=== PATIENT | female | born 1960 | race Caucasian/White ===

== ENCOUNTER 2022-04-14 02:48 | Inpatient (IN) | payer OTHER ==
[~2022-04-14] VITALS: Ht 157.5 cm; Wt 52.2 kg
[2022-04-14] MEDS ORDERED: IV NORMAL SALINE 500 ML BAG IV ONE ×2 (03:00→03:15)
[2022-04-14] MEDS ORDERED: SODIUM BICARBONATE 8.4% 50 MEQ/50 ML DISP.SYRIN IV ONE ×2 (03:15→03:30)
--- NOTE | 2022-04-14 03:43 | NUR ---
BIB ambulance from home with c/o chest pain, bedside EKG done for MD review. Informed of plan of care at this time. #24g established in right foot, unable to draw blood at this time. patient is a/ox4 c/o left arm and chest pain s/p leaving her drink and returning to it. no s/s of respiratory distress, abd soft and slightly distended, states tender to palpation, no s/s of any edema noted. side rails up will continue to monitor.
[2022-04-14] MEDS ORDERED: LORAZEPAM 2 MG/1 ML VIAL ONE (03:52)
[2022-04-14] MEDS ORDERED: LORAZEPAM 2 MG/1 ML VIAL IM ONE (04:00)
--- NOTE | 2022-04-14 04:14 | NUR ---
patient has been medicated as per order with ativan 1mg, IVF infusing well, awaiting MD for IV placement via ultrasound.
[2022-04-14] MEDS ORDERED: levETIRAcetam 250 MG TABLET PO ONE (05:00)
--- NOTE | 2022-04-14 05:11 | NUR ---
MD was at bedside for IV start via ultrasound, unable to place at this time.
--- NOTE | 2022-04-14 05:17 | NUR ---
patient continues to rest in bed, skin color noted to be pale at this time, still unable to draw labs.Respiratory at bedside. side rails remain up will continue to monitor.
[2022-04-14 05:22] LABS: CREATININE 0.7 mg/dL (0.6-1.3); POTASSIUM 4.7 mmol/L (3.5-5.1)
[2022-04-14 05:25] LABS: HEMATOCRIT 36.1 % (31.2-41.9); MEAN CORPUSCULAR VOLUME 99.7 fL (75.5-95.3); PLATELET COUNT (AUTO) 406 K/uL (179-408)
[2022-04-14] MEDS ORDERED: levETIRAcetam 250 MG TABLET ONE (05:26)
[2022-04-14 05:34] LABS: BILIRUBIN,TOTAL 0.4 mg/dL (0.2-1.0); MAGNESIUM 1.9 mg/dL (1.8-2.4); PHOSPHOROUS 1.7 mg/dL (2.5-4.9); TOTAL PROTEIN, SERUM 7.3 g/dL (6.4-8.2)
--- NOTE | 2022-04-14 06:01 | NUR ---
patient ambulated to bathroom and back to bed, placed back on monitor and repeat EKG done for md review.
[2022-04-14 06:09] LABS: ETHANOL 123 MG/DL (0-0)
[2022-04-14 06:12] LABS: ACETAMINOPHEN < 10.0 ug/mL (10-30)
[2022-04-14] MEDS ORDERED: MECL-115 PO (06:12)
[2022-04-14] MEDS ORDERED: LISI20TA30 PO (06:12)
[2022-04-14] MEDS ORDERED: LEVE500T9 PO (06:12)
[2022-04-14] MEDS ORDERED: ATOR20TA PO (06:12)
[2022-04-14] MEDS ORDERED: POTA10CA43 PO (06:12)
[2022-04-14] MEDS ORDERED: FURO-152 PO (06:12)
--- NOTE | 2022-04-14 06:12 | NUR ---
Patient to CT via wheelchair.
--- NOTE | 2022-04-14 06:19 | NUR ---
sodium bicarb was discontinued by [facility]NASTAS[facility]. returned to stock.
[2022-04-14] MEDS ORDERED: LORAZEPAM 1 MG TABLET ONE (06:28)
--- NOTE | 2022-04-14 06:29 | NUR ---
Verbal order to hold off on morphine and give 1mg of ativan po at this time. Patient has been medicated as per order.
[2022-04-14] MEDS ORDERED: MORPHINE SULFATE 2 MG/1 ML DISP.SYRIN IV ONE (06:30)
--- NOTE | 2022-04-14 06:34 | NUR ---
returned from CT awaiting results.
[2022-04-14] MEDS ORDERED: LORAZEPAM 0.5 MG TABLET PO ONE (06:45)
--- NOTE | 2022-04-14 06:47 | NUR ---
O2 2 LITERS APPLIED AT THIS TIME SAT WAS 86# MD AWARE, PATIENT AWARE AWAITING URINE.
--- NOTE | 2022-04-14 06:59 | NUR ---
PATIENT PLACED ON BEDPAN PER HER REQUEST.
[2022-04-14] MEDS ORDERED: ASPIRIN 325 MG TABLET PO ONE (07:00)
--- NOTE | 2022-04-14 07:10 | NUR ---
REMOVED FROM BEDPAN, UNABLE TO VOID AT THIS TIME.
[2022-04-14 08:42] LABS: *BILIRUBIN,URIN NEGATIVE (NEGATIVE); *CLARITY,URINE CLEAR (CLEAR); *COLOR,URINE YELLOW (YELLOW); *KETONES,URINE NEGATIVE (NEGATIVE); *UROBILINOGEN,URINE 0.2 E.U./dl (NORMAL); LEUKOCYTE ESTERASE ,URINE 1+ (NEGATIVE); NITRITE, URINE POSITIVE (NEGATIVE); PH,URINE 6.5 (5.0-8.0); UGLUCOSE NEGATIVE (NEGATIVE)
[2022-04-14 08:49] LABS: *AMPHETAMINE, URINE POSITIVE (NEGATIVE); *CANNABINOID, URINE NEGATIVE (NEGATIVE); *COCCAINE, URINE NEGATIVE (NEGATIVE); *OPIATE, URINE NEGATIVE (NEGATIVE); *PHENCYCLIDINE SCREEN,URINE NEGATIVE (NEGATIVE)
[2022-04-14 08:56] LABS: *BLOOD, URINE TRACE (NEGATIVE)
--- NOTE | 2022-04-14 09:30 | NUR ---
Gave report to ASHLEY Manzanares.
--- NOTE | 2022-04-14 10:25 | NUR ---
Patient transferred to telemetry unit room 329B accompanied by RN.
[2022-04-14 11:00] VITALS: BP 146/70
[2022-04-14] MEDS ORDERED: MECLIZINE HCL 25 MG TABLET PO PRN (11:00)
[2022-04-14] MEDS ORDERED: ONDANSETRON 4 MG/2 ML VIAL IV PRN (11:00)
[2022-04-14] MEDS ORDERED: LISINOPRIL 20 MG TABLET PO SCH (11:00)
[2022-04-14] MEDS ORDERED: levETIRAcetam 500 MG TABLET PO SCH (11:00)
--- NOTE | 2022-04-14 11:00 | NUR ---
REPORT RECEIVED FROM ALEXIS RAMIREZ. PT AOX3-4, AMBULATORY. SKIN INTACT. ON ROOM AIR SATURATING 97-98%. S/P FALL AT HOME. PT IS POSITIVE FOR AMPHETAMINE AND ETOH. PT IS SINUS R WITH LBBB. PT WILL GO TO RM 329B. DR RAMIREZ WILL FOLLOW UP CARE.
[2022-04-14 12:15] LABS: BACTERIA,URINE MA /HPF (NONE SEEN); SQUAMOUS EPITHELIAL CELL,UR FEW /HPF (NONE SEEN)
[2022-04-14] MEDS: NITROFURANTOIN/NITROFURAN MAC 100 MG CAPSULE PO SCH ×2 (12:24→20:21)
[2022-04-14] MEDS: LORAZEPAM 2 MG/1 ML VIAL IV PRN ×2 (12:26→20:27)
[2022-04-14] MEDS ORDERED: HYDR25TA4 PO (13:10)
[2022-04-14] MEDS ORDERED: CYCL5TAB PO (13:10)
[2022-04-14] MEDS ORDERED: ESCI10TA PO (13:11)
[2022-04-14] MEDS ORDERED: GABAPE PO (13:42)
[2022-04-14] MEDS ORDERED: LORA-258 PO (13:42)
[2022-04-14] MEDS ORDERED: LEVE750T10 PO (13:42)
[2022-04-14] MEDS: ACETAMINOPHEN 325 MG TABLET PO PRN (16:15)
[2022-04-14] MEDS ORDERED: SODIUM PHOSPHATE MM 15 MMOL in IV NORMAL SALINE 250 ML IV ONE (17:00)
[2022-04-14] MEDS: levETIRAcetam 500 MG TABLET PO SCH (17:25)
[2022-04-14 19:48] VITALS: BP 132/64
[2022-04-14] MEDS: ATORVASTATIN 40 MG TABLET PO SCH (20:27)
[2022-04-14] MEDS ORDERED: ATORVASTATIN 20 MG TABLET PO SCH (21:00)
[2022-04-14] MEDS ORDERED: CEFTRIAXONE /D5W 50ML IVPB **ER PYXIS IV ONE (21:53)
[2022-04-14] MEDS: CEFTRIAXONE 1 G in IV DEXTROSE 5% 50 ML IV SCH (22:07)
[2022-04-15 00:01] VITALS: BP 130/68
[2022-04-15 04:34] VITALS: BP 167/85
[2022-04-15] MEDS: LORAZEPAM 2 MG/1 ML VIAL IV PRN (05:50)
--- NOTE | 2022-04-15 05:53 | NUR ---
AAOx3-4 with some periods of forgetfulness and confusion at times. Easily redirected. All due meds given without difficulty. Had some periods of anxiety during the shift. Ativan 1 mg IV given as ordered x2 during the shift per patient's request via right upper arm midline. No acute distress noted. On telemetry , patient sinus rhythm with lower bundle branch block. Patient asymptomatic. Continent of bowel and bladder.
[2022-04-15] MEDS: PANTOPRAZOLE SODIUM 40 MG TABLET.DR PO SCH (06:05)
[2022-04-15 07:53] LABS: HEMATOCRIT 32.9 % (31.2-41.9); MEAN CORPUSCULAR HEMOGLOBIN 33.3 uug (24.7-32.8); MEAN CORPUSCULAR VOLUME 100.6 fL (75.5-95.3); PLATELET COUNT (AUTO) 362 K/uL (179-408)
[2022-04-15 08:18] LABS: THYROID STIMULATING HORMONE 5.702 mIU/mL (0.358-3.740)
[2022-04-15] MEDS: levETIRAcetam 500 MG TABLET PO SCH ×2 (08:31→16:56)
[2022-04-15] MEDS: FUROSEMIDE 20 MG TABLET PO SCH (08:31)
[2022-04-15] MEDS: NITROFURANTOIN/NITROFURAN MAC 100 MG CAPSULE PO SCH ×2 (08:31→20:36)
[2022-04-15] MEDS: ESCITALOPRAM OXALATE 10 MG TABLET PO SCH (08:32)
[2022-04-15] MEDS: HYDROCHLOROTHIAZIDE 25 MG TABLET PO SCH (08:33)
[2022-04-15 08:38] LABS: BILIRUBIN,TOTAL 0.4 mg/dL (0.2-1.0); CREATININE 0.8 mg/dL (0.6-1.3); MAGNESIUM 1.7 mg/dL (1.8-2.4); PHOSPHOROUS 2.5 mg/dL (2.5-4.9); POTASSIUM 3.4 mmol/L (3.5-5.1); TOTAL PROTEIN, SERUM 6.4 g/dL (6.4-8.2)
[2022-04-15] MEDS ORDERED: LISINOPRIL 10 MG TABLET PO SCH ×2 (09:00→12:30)
[2022-04-15] MEDS: CEFTRIAXONE 1 G in IV DEXTROSE 5% 50 ML IV SCH (09:07)
--- NOTE | 2022-04-15 10:00 | NUR ---
RECEIVED IN ROOM AWAKE ALERT ORIENTED BUT IS FORGETFUL SOMEWHAT DELUSIONAL AND PARANOID REORIENTED TO THE FACILITY.MIDLINE INTACT RIGHT UPPER ARM REMAIN ON ATB ORDERED WITH NO ADVERSE OR ALLERGIC REACTIONS AT THIS TIME CALL LIGHTS AND HER PERSONAL BELONGINGS ARE WITHIN EASY REACH WILL CONTINUE TO OBSERVE.
[2022-04-15] MEDS ORDERED: POTASSIUM CHLORIDE 20 MEQ TAB.PRT.SR PO ONE (10:30)
[2022-04-15] MEDS: MAGNESIUM SULFATE/D5W 100 ML IV SCH ×2 (10:53→12:17)
[2022-04-15 11:46] VITALS: BP 169/71
--- NOTE | 2022-04-15 12:00 | NUR ---
POTASSIUM LEVEL IS 3.4 AND MAG LEVEL IS 1.7 WITH REPLACEMENT ORDERS AND NOTED.
[2022-04-15] MEDS: DIAZEPAM 10 MG TABLET PO PRN (12:44)
[2022-04-15] MEDS: CYANOCOBALAMIN 1000 MCG/ML VIAL IM SCH (14:30)
[2022-04-15 16:00] VITALS: BP 119/80
--- NOTE | 2022-04-15 17:30 | NUR ---
PATIENT IS GETTING MORE CONFUSED PUT ON HER OWN CLOTHES AND WALKING DOWN THE HALLWAY WITH HER PURSE STATED THAT SHE WAS LEAVING REMINDED HER THAT THE DOCTOR DID NOT DISCHARGE HER YET STATED THAT PEOPLE WAS TALKING ABOUT HER AND CALLING HER SON AND SAYING THINGS ABOUT HER REASSURED HER THAT NO ONE WAS TALKING ABOUT HER THAT SHE SHOULD WAIT FOR DR CHOUDHURY TO SEE HER BEFORE SHE CAN BE DISCHARGED SHE AT THIS TIME TOLD ME THAT SHE NEEDS HER PHONE CHARGED SO I TOOK HER PHONE TO CHARGE IT FOR HER.
--- NOTE | 2022-04-15 18:18 | NUR ---
SHE IS RESTING IN HER BED AT THE MOMENT WILL CONTINUE TO OBSERVE.
[2022-04-15 20:27] VITALS: BP 126/72
[2022-04-15] MEDS: ATORVASTATIN 40 MG TABLET PO SCH (20:36)
[2022-04-16 00:04] VITALS: BP 106/57
[2022-04-16 04:05] VITALS: BP 95/40
[2022-04-16] MEDS: DIAZEPAM 10 MG TABLET PO PRN ×3 (05:13→22:00)
[2022-04-16] MEDS: PANTOPRAZOLE SODIUM 40 MG TABLET.DR PO SCH (06:35)
[2022-04-16 07:29] LABS: CREATININE 0.8 mg/dL (0.6-1.3); MAGNESIUM 2.1 mg/dL (1.8-2.4); PHOSPHOROUS 2.3 mg/dL (2.5-4.9); POTASSIUM 4.1 mmol/L (3.5-5.1)
[2022-04-16] MEDS: levETIRAcetam 500 MG TABLET PO SCH ×2 (08:54→16:08)
[2022-04-16] MEDS: NITROFURANTOIN/NITROFURAN MAC 100 MG CAPSULE PO SCH ×2 (08:54→22:17)
[2022-04-16] MEDS: HYDROCHLOROTHIAZIDE 25 MG TABLET PO SCH (08:54)
[2022-04-16] MEDS: CEFTRIAXONE 1 G in IV DEXTROSE 5% 50 ML IV SCH (08:55)
[2022-04-16] MEDS: FUROSEMIDE 20 MG TABLET PO SCH (08:55)
[2022-04-16] MEDS: LISINOPRIL 20 MG TABLET PO SCH (08:55)
[2022-04-16] MEDS: CYANOCOBALAMIN 1000 MCG/ML VIAL IM SCH ×2 (10:07→22:17)
[2022-04-16] MEDS: ESCITALOPRAM OXALATE 10 MG TABLET PO SCH (10:07)
[2022-04-16 10:17] LABS: MEAN CORPUSCULAR VOLUME 98.9 fL (75.5-95.3); PLATELET COUNT (AUTO) 391 K/uL (179-408)
[2022-04-16 12:00] VITALS: BP 119/67
--- NOTE | 2022-04-16 12:17 | NUR ---
PATIENT IS EXPRESSING ANXIETY AND REQUESTING FOR ANTI ANXIETY MEDICATION MEDICATED WITH VALIUM ORDERED PATIENT REASSURED MADE COMFORTABLE WILL CONTINUE TO OBSERVE.
[2022-04-16] MEDS ORDERED: NEUTRA PHOS PACKET PO ONE (16:30)
[2022-04-16 17:13] VITALS: BP 90/54
--- NOTE | 2022-04-16 17:30 | NUR ---
RESTING IN BED DENIES DISCOMFORTS AT THIS TIME PHOS REPLACEMENTS ORDERED.
[2022-04-16] MEDS: CYCLOBENZAPRINE HCL 10 MG TABLET PO PRN (18:29)
[2022-04-16 20:00] VITALS: BP 101/50
[2022-04-16] MEDS: FOLIC ACID 1 MG TABLET PO SCH (21:00)
[2022-04-16] MEDS: THIAMINE HCL 100 MG TABLET PO SCH (21:30)
[2022-04-16] MEDS: MULTIVITAMINS,THERAPEUTIC TABLET PO SCH (21:30)
[2022-04-16] MEDS: ATORVASTATIN 40 MG TABLET PO SCH (22:17)
[2022-04-17] VITALS: BP 108/52
[2022-04-17 04:00] VITALS: BP 110/75
[2022-04-17] MEDS: PANTOPRAZOLE SODIUM 40 MG TABLET.DR PO SCH (07:00)
[2022-04-17] MEDS: CYCLOBENZAPRINE HCL 10 MG TABLET PO PRN ×2 (07:04→16:48)
[2022-04-17 07:24] LABS: HEMATOCRIT 33.7 % (31.2-41.9); MEAN CORPUSCULAR VOLUME 99.9 fL (75.5-95.3); PLATELET COUNT (AUTO) 384 K/uL (179-408)
--- NOTE | 2022-04-17 07:33 | NUR ---
Patient AAOX3 with period of confusion. No sign of respiratory distress observed. Flexeril administered this morning upon patient request. Patient stated that she had a good night. No changes noted.
--- NOTE | 2022-04-17 07:36 | NUR ---
administered Protonix as ordered but realized that the scanner didn't go through.
[2022-04-17 07:59] LABS: THYROID STIMULATING HORMONE 4.034 mIU/mL (0.358-3.740)
[2022-04-17 08:00] LABS: CREATININE 1.6 mg/dL (0.6-1.3); MAGNESIUM 2.2 mg/dL (1.8-2.4); PHOSPHOROUS 4.8 mg/dL (2.5-4.9); POTASSIUM 3.8 mmol/L (3.5-5.1)
[2022-04-17] MEDS: MULTIVITAMINS,THERAPEUTIC TABLET PO SCH (09:36)
[2022-04-17] MEDS: NITROFURANTOIN/NITROFURAN MAC 100 MG CAPSULE PO SCH ×2 (09:36→21:21)
[2022-04-17] MEDS: THIAMINE HCL 100 MG TABLET PO SCH (09:36)
[2022-04-17] MEDS: FUROSEMIDE 20 MG TABLET PO SCH (09:36)
[2022-04-17] MEDS: levETIRAcetam 500 MG TABLET PO SCH ×2 (09:36→16:47)
[2022-04-17] MEDS: ESCITALOPRAM OXALATE 10 MG TABLET PO SCH (09:36)
[2022-04-17] MEDS: FOLIC ACID 1 MG TABLET PO SCH (09:37)
[2022-04-17] MEDS: DIAZEPAM 10 MG TABLET PO PRN ×2 (09:37→18:10)
--- NOTE | 2022-04-17 09:37 | NUR ---
PATIENT EXPRESSED FEELING ANXIOUS UNABLE TO EXPRESS HER EXACT FEELING EXCEPT THAT SHE CANNOT RELAX MEDICATED AT THIS TIME WITH VALIUM ORDERED MADE COMFORTABLE WILL CONTINUE TO OBSERVE.
[2022-04-17] MEDS: LISINOPRIL 20 MG TABLET PO SCH (09:41)
[2022-04-17] MEDS: HYDROCHLOROTHIAZIDE 25 MG TABLET PO SCH (09:41)
[2022-04-17 11:56] VITALS: BP 98/50
[2022-04-17 15:54] VITALS: BP 98/49
--- NOTE | 2022-04-17 18:00 | NUR ---
SEEN BY DR SAVAGE WITH ORDER FOR DISCHARGE PLANNING IN AM.
--- NOTE | 2022-04-17 18:10 | NUR ---
MEDICATED WITH VALIUM FOR C/O ANXIETY ORDERED REASSURED MADE COMFORTABLE WILL CONTINUE TO OBSERVE.
[2022-04-17 20:00] VITALS: BP 86/46
[2022-04-17] MEDS: ATORVASTATIN 40 MG TABLET PO SCH (21:21)
[2022-04-18] MEDS: PANTOPRAZOLE SODIUM 40 MG TABLET.DR PO SCH (06:33)
[2022-04-18] MEDS ORDERED: IV NORMAL SALINE 500 ML IV ONE ×2 (08:45→14:00)
[2022-04-18] MEDS: FUROSEMIDE 20 MG TABLET PO SCH (08:53)
[2022-04-18] MEDS: levETIRAcetam 500 MG TABLET PO SCH ×2 (08:53→16:59)
[2022-04-18] MEDS: NITROFURANTOIN/NITROFURAN MAC 100 MG CAPSULE PO SCH ×2 (08:53→20:27)
[2022-04-18] MEDS: ESCITALOPRAM OXALATE 10 MG TABLET PO SCH (08:53)
[2022-04-18] MEDS: THIAMINE HCL 100 MG TABLET PO SCH (08:53)
[2022-04-18] MEDS: DIAZEPAM 10 MG TABLET PO PRN ×2 (08:53→20:27)
[2022-04-18] MEDS: MULTIVITAMINS,THERAPEUTIC TABLET PO SCH (08:53)
[2022-04-18] MEDS: CYANOCOBALAMIN 1000 MCG/ML VIAL IM SCH (08:53)
[2022-04-18] MEDS: FOLIC ACID 1 MG TABLET PO SCH (08:53)
[2022-04-18 11:45] VITALS: BP 80/40
[2022-04-18 12:30] VITALS: BP 85/43
--- NOTE | 2022-04-18 13:13 | NUR ---
Social work consult was requested for a patient on medsurg to assess current living situation. Patient is 62-year-old white female admitted to the hospital for chest pain. Patient is alert and oriented X3. Patient presents with anxious mood and congruent affect. Patient states her primary contact is her friend, Zara ([phone]) who lives in [place] and they have a good relationship. Patient states she lives alone at [address] [place] [address] [place] [address]. Patient states she does not have any medical equipment at home and is not driving. Patient states she has a history of alcohol abuse but has been sober for two months. Patients toxicology report was positive for amphetamines and her alcohol level was 123. RJ provided the patient with substance abuse resources for [address] [address] ([phone]), [facility] [address] [facility] [address] ([phone]), and [address] [address] ([phone]). Patient appears unmotivated for treatment. Patient states she has a history of depression and sees a psychiatrist once a month and takes medication. Patient denies suicidal or homicidal ideation. Patient states her plan for discharge is to go home to [address] [place] [address] [place] [phone]. Patient requests a taxi voucher at discharge and RJ informed case packer, Anderson.
--- NOTE | 2022-04-18 13:57 | NUR ---
BLOOD PRESSURE AT THIS TIME IS 85/43 WITH HR OF 90 PATIENT IS ASSYMPTOMATIC CALLED AND NOTIFIED DR SAVAGE WITH ORDER TO GIVE 500 ML OF NS BOLUS AND NOTED.
--- NOTE | 2022-04-18 14:32 | NUR ---
NS BOLUS STARTED ORDERED AT THIS TIME.
[2022-04-18] MEDS: CYCLOBENZAPRINE HCL 10 MG TABLET PO PRN (16:59)
--- NOTE | 2022-04-18 17:50 | NUR ---
BLOOD PRESSURE IS CURRENTLY AT 89/51 HR 89 RESTING ENCOURAGED TO DRINK MORE FLUIDS MID LINE RIGHT UPPER ARM REMAIN INTACT WITH NO S/S OF INFILTERATION AT THIS TIME WILL OBSERVE.
[2022-04-18 20:00] VITALS: BP 98/55
[2022-04-18] MEDS: ACETAMINOPHEN 325 MG TABLET PO PRN (20:27)
[2022-04-18] MEDS: ATORVASTATIN 40 MG TABLET PO SCH (20:27)
[2022-04-19 04:00] VITALS: BP 101/52
[2022-04-19] MEDS: PANTOPRAZOLE SODIUM 40 MG TABLET.DR PO SCH (06:03)
[2022-04-19] MEDS: CYANOCOBALAMIN 1000 MCG/ML VIAL IM SCH (08:06)
[2022-04-19] MEDS: ESCITALOPRAM OXALATE 10 MG TABLET PO SCH (08:06)
[2022-04-19] MEDS: THIAMINE HCL 100 MG TABLET PO SCH (08:06)
[2022-04-19] MEDS: levETIRAcetam 500 MG TABLET PO SCH ×2 (08:06→16:58)
[2022-04-19] MEDS: NITROFURANTOIN/NITROFURAN MAC 100 MG CAPSULE PO SCH (08:06)
[2022-04-19] MEDS: MULTIVITAMINS,THERAPEUTIC TABLET PO SCH (08:06)
[2022-04-19] MEDS: FOLIC ACID 1 MG TABLET PO SCH (08:12)
[2022-04-19 11:09] VITALS: BP 99/40
[2022-04-19] MEDS ORDERED: IV NS 1000 ML 1,000 ML IV ONE (12:15)
[2022-04-19] MEDS: ENSURE ENLIVE (VAN) 240 ML LIQUID PO SCH (16:58)
[2022-04-19] MEDS ORDERED: ESCITALOPRAM OXALATE 10 MG TABLET PO ONE (17:00)
[2022-04-19 17:10] VITALS: BP 94/48
[2022-04-19] MEDS: IV 1/2NS 1000 ML 1,000 ML IV PRN (19:00)
[2022-04-19 20:15] VITALS: BP 122/47
[2022-04-19] MEDS: ATORVASTATIN 40 MG TABLET PO SCH (20:28)
[2022-04-19] MEDS: DIAZEPAM 10 MG TABLET PO PRN (20:40)
[2022-04-20 04:22] VITALS: BP 117/64
[2022-04-20] MEDS: IV 1/2NS 1000 ML 1,000 ML IV PRN (05:09)
[2022-04-20] MEDS: PANTOPRAZOLE SODIUM 40 MG TABLET.DR PO SCH (06:01)
[2022-04-20 07:45] LABS: HEMATOCRIT 30.2 % (31.2-41.9); MEAN CORPUSCULAR HEMOGLOBIN 33.5 uug (24.7-32.8); MEAN CORPUSCULAR VOLUME 100.6 fL (75.5-95.3); PLATELET COUNT (AUTO) 325 K/uL (179-408)
[2022-04-20 08:00] LABS: BILIRUBIN,TOTAL 0.1 mg/dL (0.2-1.0); CREATININE 0.9 mg/dL (0.6-1.3); MAGNESIUM 1.7 mg/dL (1.8-2.4); PHOSPHOROUS 2.5 mg/dL (2.5-4.9); POTASSIUM 3.2 mmol/L (3.5-5.1); TOTAL PROTEIN, SERUM 5.9 g/dL (6.4-8.2)
[2022-04-20] MEDS: THIAMINE HCL 100 MG TABLET PO SCH (08:00)
[2022-04-20] MEDS: ENSURE ENLIVE (VAN) 240 ML LIQUID PO SCH (08:00)
[2022-04-20] MEDS: FOLIC ACID 1 MG TABLET PO SCH (08:00)
[2022-04-20] MEDS: levETIRAcetam 500 MG TABLET PO SCH (08:00)
[2022-04-20] MEDS: MULTIVITAMINS,THERAPEUTIC TABLET PO SCH (08:00)
[2022-04-20] MEDS ORDERED: POTASSIUM CHLORIDE 20 MEQ TAB.PRT.SR PO ONE (08:30)
[2022-04-20] MEDS ORDERED: ESCITALOPRAM OXALATE 10 MG TABLET PO SCH (09:00)
[2022-04-20] MEDS ORDERED: MAGNESIUM OXIDE 400 MG TABLET PO ONE (09:30)
[2022-04-20] MEDS ORDERED: ESCI-9 PO (11:02)
[2022-04-20] MEDS ORDERED: THIA100T13 PO (11:02)
--- NOTE | 2022-04-20 11:35 | NUR ---
dc orders received noted and carried out,dc midline per md orders.dc instruction and education given to the pt .pt said she will follow up with her pcp in one week .pt left the facility via taxi in stable condition
== END 2022-04-20 11:35 | disposition home or self-care (01) | DRG 243 ==
LOC: ER 03:09 → TELE3 09:56 → MEDSURG3 04-17 02:23
PROVIDERS: ADMIT Internal Medicine; ATTEND Internal Medicine
PROC: 05H533Z Insertion of Infusion Device into Right Subclavian Vein, Percutaneous Approach (ICD-10-PCS; principal; 2022-04-18)
PROC: B546ZZA Ultrasonography of Right Subclavian Vein, Guidance (ICD-10-PCS; principal; 2022-04-18)
DX: K21.9 Gastro-esophageal reflux disease without esophagitis (principal); N17.0 Acute kidney failure with tubular necrosis; E22.2 Syndrome of inappropriate secretion of antidiuretic hormone; E83.39 Other disorders of phosphorus metabolism; N39.0 Urinary tract infection, site not specified; E03.9 Hypothyroidism, unspecified; E78.5 Hyperlipidemia, unspecified; E83.42 Hypomagnesemia; E87.6 Hypokalemia; F32.A Depression, unspecified; G40.909 Epilepsy, unspecified, not intractable, without status epilepticus; Z86.73 Personal history of transient ischemic attack (TIA), and cerebral infarction without residual deficits; E53.8 Deficiency of other specified B group vitamins; F10.129 Alcohol abuse with intoxication, unspecified; F41.9 Anxiety disorder, unspecified; I44.7 Left bundle-branch block, unspecified; E83.9 Disorder of mineral metabolism, unspecified; F19.10 Other psychoactive substance abuse, uncomplicated; M19.90 Unspecified osteoarthritis, unspecified site; M25.532 Pain in left wrist; I10 Essential (primary) hypertension; I08.1 Rheumatic disorders of both mitral and tricuspid valves; W19.XXXA Unspecified fall, initial encounter; Y93.9 Activity, unspecified; Y92.009 Unspecified place in unspecified non-institutional (private) residence as the place of occurrence of the external cause; F10.139 Alcohol abuse with withdrawal, unspecified; Y90.6 Blood alcohol level of 120-199 mg/100 ml; D64.9 Anemia, unspecified; E86.1 Hypovolemia; F32.1 Major depressive disorder, single episode, moderate; B96.20 Unspecified Escherichia coli [E. coli] as the cause of diseases classified elsewhere
CPT/HCPCS: 36415; 36600; 70450; 71045; 73110; 83735; 84100; 84443; 84481; 84484; 85025; 93005; 93307; A4663; G0378; G0480; J0696; J2060; J3420; J3475; J3490; J7040